=== PATIENT | female | born 1990 | race Caucasian/White ===

== ENCOUNTER 2020-10-25 11:59 | Outpatient (REF) | payer MEDICAID, SELFPAY ==
[2020-10-25 13:16] LABS: COVID-19 Test Negative (Negative)
== END 2020-10-25 12:00 | disposition home or self-care (01) ==
LOC: HO.LAB 11:59
PROVIDERS: Visit Provider Internal Medicine
DX: Z20.822 Contact with and (suspected) exposure to COVID-19 (principal)
CPT/HCPCS: 36415; 87635; C9803

== ENCOUNTER 2020-11-01 14:58 | Outpatient (REF) | payer MEDICAID, SELFPAY ==
[2020-11-01 15:27] LABS: COVID-19 Test Negative (Negative); IDNOW Serial# 55D5AD1C
== END 2020-11-01 14:59 | disposition home or self-care (01) ==
LOC: HO.LAB 14:58
PROVIDERS: Visit Provider Internal Medicine
DX: Z20.822 Contact with and (suspected) exposure to COVID-19 (principal)
CPT/HCPCS: 36415; 87635; C9803